=== PATIENT | female | born 1955 | race African-American/Black ===

== ENCOUNTER 2017-07-23 13:04 | Emergency (ER) | payer OTHER ==
[2017-07-23 13:16] VITALS: BP 123/69; PULSE 67; TEMP 97.7; BMI 51.2
--- NOTE | 2017-07-23 13:55 | PDOC ---
History of Present Illness - General Chief Complaint: Rash Stated Complaint: RASH Time Seen by Provider: 07/23/17 13:51 History Source: Patient Exam Limitations: No Limitations - History of Present Illness Initial Comments: 07/23/17 19:38 Patient states is concerned about worsening itchy rash around her neck. States noted onset 2 days ago in the back of her neck and has spread around to the front. Is isolated only to the neck region, has no swelling to lips, tongue or airway is clear. Patient states has significant ALLERGIES and carries EpiPen but does not feel that this rash is related to any anaphylactic type reaction. Receives ALLERGY shots weekly and wonders if there may have been some changes with the ingredients. Patient denies fever, denies any other family member affected, denies any recent exposure to any environmental allergens although were awake for the first time last week. Timing/Duration: reports: changing over time, getting worse Severity: Yes: mild Location: reports: face Respiratory Risk Factors: reports: no cause identified. denies: exposure to allergen, foods, insect bite, insect sting Modifying Factors: improves with: antihistamine Associated Symptoms: reports: denies symptoms Past History - Travel Traveled outside of the country in the last 30 days: No Close contact w/someone who was outside of country & ill: No - Past Medical History Allergies/Adverse Reactions: Allergies Allergy/AdvReac Type Severity Reaction Status Date / Time sulfur dioxide Allergy Verified 07/23/17 13:11 Home Medications: Ambulatory Orders Atorvastatin Ca [Lipitor] 20 mg PO HS 07/23/17 Insulin (Levemir) [Levemir Flexpen -] 0 units SQ DAILY 07/23/17 Lisinopril [Prinivil] 10 mg PO DAILY 07/23/17 COPD: No DVT: No Diabetes: Yes Hypercholesterolemia: Yes - Surgical History Cholecystectomy: Yes - Immunization History Immunization Up to Date: Yes - Suicide/Smoking/Psychosocial Hx Smoking History: Never smoked Have you smoked in the past 12 months: No Hx Alcohol Use: No Drug/Substance Use Hx: No Substance Use Type: None Review of Systems - Review of Systems Able to Perform ROS?: Yes Is the patient limited Wolof proficient: Yes Constitutional: Yes: Symptoms Reported, See HPI, Malaise. No: Fever Respiratory: Yes: Symptoms reported, See HPI Musculoskeletal: No: Symptoms Reported Integumentary: Yes: Symptoms Reported, Pruritus, Rash (around neck) *Physical Exam - Vital Signs Last Vital Signs Temp Pulse Resp BP Pulse Ox 97.7 F 67 16 123/69 100 07/23/17 13:11 07/23/17 13:11 07/23/17 13:11 07/23/17 13:11 07/23/17 13:11 - Physical Exam General Appearance: Yes: Nourished, Appropriately Dressed. No: Apparent Distress HEENT: positive: EOMI, ALEXANDER, Normal ENT Inspection, Normal Voice, Symmetrical, TMs Normal, Pharynx Normal, Other (no swelling, redness, angioedema) Neck: positive: Supple. negative: Tender Respiratory/Chest: positive: Lungs Clear, Normal Breath Sounds Extremity: positive: Normal Capillary Refill, Normal Inspection Integumentary: positive: Normal Color, Dry, Warm, Rash (discrete maculopapular rash mildly erythematous lesions, no vesicular appearance, no scabbing appearance, no weeping. 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 Will encourage follow up with allergen on Tuesday *DC/Admit/Observation/Transfer Diagnosis at time of Disposition: Rash of back - Discharge Dispostion Disposition: HOME Condition at time of disposition: Stable Admit: No - Referrals - Patient Instructions Printed Discharge Instructions: DI for Contact Dermatitis Additional Instructions: Rest, keep cool and dry- avoid strenuous activity or hot /humid environments Less hot showers, no abrasive soaps May use heavy creams like Eucerin or Cetaphil to keep skin moist May apply Aveeno, calamine lotion, [id number] hydrocortisone creams as needed for symptoms May use Benadryl at night for antihistamine, Zyrtec/ Yulia or Claritin for daytime antihistamine use to help with itching May use rwih-tzf-[id number] hydrocortisone cream on all areas except face Try to identify cause for rash and avoid exposures Followup with PMD in one week if no resolution Make appointment with specialty therapist for evaluation when possible - Post Discharge Activity
== END 2017-07-23 14:29 | disposition home or self-care (01) ==
LOC: JERFT 13:04
DX: L25.9 Unspecified contact dermatitis, unspecified cause (principal)
CPT/HCPCS: 99281-25

== ENCOUNTER 2018-08-04 12:20 | Emergency (ER) | payer OTHER ==
[2018-08-04 12:33] VITALS: BP 165/70; PULSE 60; TEMP 98.2; BMI 54.8
--- NOTE | 2018-08-04 12:56 | PDOC ---
History of Present Illness - General Chief Complaint: Pain, Acute Stated Complaint: LEG PAIN Time Seen by Provider: 08/04/18 12:41 History Source: Patient Exam Limitations: No Limitations - History of Present Illness Initial Comments: 08/04/18 12:54 HISTORY OF PRESENT ILLNESS: This is 63-year-old female with denies medical history presents emergency Department for evaluation of left calf pain for one week. Patient states she was at work approximately one week ago when she reached to grab something extending her left leg to maintain balance. She felt sudden pain in her leg which is been constant for the past week. Patient is tried taking [id number] pain medications with minimal relief of pain. Patient became concerned when she noted that her left calf swollen and became painful to walk on. She denies hormone replacement therapy, smoking, recent travel. No recent travel or sick contacts. PAST MEDICAL HISTORY: Denies past medical history SURGICAL HISTORY: Denies ALLERGIES: No known drug allergies REVIEW OF SYSTEMS General/Constitutional: Denies fever or chills. Denies weakness, weight change. HEENT: Denies change in vision. Denies ear pain or discharge. Denies sore throat. Cardiovascular: Denies chest pain or shortness of breath. Respiratory: Denies cough, wheezing, or hemoptysis. Gastrointestinal: Denies nausea, vomiting, diarrhea or constipation. Denies rectal bleeding. Genitourinary: Denies dysuria, frequency, or change in urination. Musculoskeletal: Denies joint or muscle swelling or pain. Denies neck or back pain. Skin and breasts: Denies rash or easy bruising. Neurologic: Denies headache, vertigo, loss of consciousness, or loss of sensation. Psychiatric: Denies depression or anxiety. Endocrine: Denies increased thirst. Denies abnormal weight change. Hematologic/Lymphatic: Denies anemia, easy bleeding, or history of blood clots. Allergic/Immunologic: Denies hives or skin allergy. Denies latex allergy. PHYSICAL EXAM General Appearance: Well-appearing, appropriately dressed. No apparent distress , no intoxication. HEENT: EOMI, PERRLA, normal ENT inspection, normal voice, TMs normal, pharynx normal. No conjunctival pallor. No photophobia, scleral icterus. Neck: Supple. Trachea midline. No tenderness, rigidity, carotid bruit, stridor , lymphadenopathy, or thyromegaly. Respiratory/Chest: Lungs CTAB. No shortness of breath, chest tenderness, respiratory distress, accessory muscle use. No crackles, rales, rhonchi, stridor , wheezing, dullness Cardiovascular: RRR. S1, S2. No JVD, murmur, bradycardia, tachycardia. Vascular Pulses: Dorsalis-Pedis (R): 2+, Dorsalis-Pedis (L): 2+ Gastrointestinal/Abdominal: Normal bowel sounds. Abdomen soft, non-distended. No tenderness or rebound tenderness. No organomegaly, pulsatile mass, guarding, hernia, hepatomegaly, splenomegaly. Musculoskeletal/Extremities: FROM of all extremities, normal capillary refill. Pelvis Stable. No CVA tenderness. Left calf swollen. No erythema noted. Tender to palpation at the insertion point of the gastroc. Negative Reese test. Full range of motion of ankle and knee. No bony tenderness. No palpable cords Integumentary: Appropriate color, dry, warm. 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 Fully oriented, alert. Appropriate mood/affect. Motor strength 5/5. No appreciable EOM palsy, facial droop or sensory deficit. Past History - Past Medical History Allergies/Adverse Reactions: Allergies Allergy/AdvReac Type Severity Reaction Status Date / Time sulfur dioxide Allergy Verified 08/04/18 12:33 Home Medications: Ambulatory Orders Atorvastatin Ca [Lipitor] 20 mg PO HS 07/23/17 Insulin (Levemir) [Levemir Flexpen -] 0 units SQ DAILY 07/23/17 Lisinopril [Prinivil] 10 mg PO DAILY 07/23/17 CVA: No COPD: No DVT: No Diabetes: Yes Hypercholesterolemia: Yes - Surgical History Cholecystectomy: Yes - Immunization History Immunization Up to Date: Yes - Suicide/Smoking/Psychosocial Hx Smoking History: Never smoked Have you smoked in the past 12 months: No Information on smoking cessation initiated: No Hx Alcohol Use: No Drug/Substance Use Hx: No Substance Use Type: None *Physical Exam - Vital Signs Last Vital Signs Temp Pulse Resp BP Pulse Ox 98.2 F 60 18 165/70 100 08/04/18 12:29 08/04/18 12:29 08/04/18 12:29 08/04/18 12:29 08/04/18 12:29 Moderate Sedation - Procedure Monitoring Vital Signs: Procedure Monitoring Vital Signs Temperature 98.2 F 08/04/18 12:29 Pulse Rate 60 08/04/18 12:29 Respiratory Rate 18 08/04/18 12:29 Blood Pressure 165/70 08/04/18 12:29 O2 Sat by Pulse Oximetry (%) 100 08/04/18 12:29 ED Treatment Course - RADIOLOGY Radiology Studies Ordered: Category Date Time Status DUPLEX VASCUL US-1 LEG [US] Stat Ultrasound 08/04/18 12:54 Ordered Medical Decision Making - Medical Decision Making 08/04/18 12:54 A/P: 63-year-old woman with atraumatic left calf swelling Tenderness to the calf worse in the popliteal Negative Homans sign No erythema or warmth present Full range of motion of knee and ankle Duplex Doppler of the left leg, reassess 08/04/18 13:47 Ultrasound as read by Dr. Dunbar: No evidence of deep vein thrombosis. Physical exam and negative DVT study make musculoskeletal injury the most likely cause of leg pain. I'll discharge the patient home to follow-up with her primary doctor as needed. I will give her referral for orthopedist for evaluation when necessary. I discussed the physical exam findings, ancillary test results and final diagnoses with the patient. I answered all of the patient's questions. The patient was satisfied with the care received and felt comfortable with the discharge plan and treatment plan. The patient will call their primary care physician within 24 hours to arrange follow-up and will return to the Emergency Department with any new, persistent or worsening symptoms. *DC/Admit/Observation/Transfer Diagnosis at time of Disposition: Pain in left lower leg Obesity Qualifiers: Obesity type: unspecified obesity type Obesity classification: unspecified obesity classification Serious obesity comorbidity presence: without serious comorbidity Qualified Code(s): E66.9 - Obesity, unspecified - Discharge Dispostion Disposition: HOME Condition at time of disposition: Stable Decision to Admit order: No - Referrals Referrals: ON STAFF,NOT [Primary Care Provider] - - Patient Instructions Additional Instructions: Rest. Diet and exercise will help to lose weight which is a potential cause for the leg pain. You've been given a referral for orthopedist. Make an appointment to symptoms do not resolve within the next 7-10 days. Make an appointment with her primary doctor for reevaluation. Return to emergency department for chest pain, shortness of breath, lightheadedness, dizziness or any other concerns. - Post Discharge Activity
== END 2018-08-04 13:51 | disposition home or self-care (01) ==
LOC: JERFT 12:20
DX: M79.662 Pain in left lower leg (principal); E11.9 Type 2 diabetes mellitus without complications
CPT/HCPCS: 93971-TC; 99281-25